=== PATIENT | female | born 1985 | race African-American/Black ===

== ENCOUNTER 2016-09-12 06:24 | Emergency (ER) | payer OTHER ==
[~2016-09-12] VITALS: Ht 154.9 cm; Wt 90.6 kg
[~2016-09-12 06:24] MED LIST: ALBU6.7H INH; CIPR-213 PO; D-ME118S13 PO; PRENATAL VITS
[2016-09-12 07:48] VITALS: BP 108/66
== END 2016-09-12 08:42 | disposition home or self-care (01) ==
LOC: ER 07:20
DX: T37.8X5A Adverse effect of other specified systemic anti-infectives and antiparasitics, initial encounter (principal); N76.0 Acute vaginitis; Z88.3 Allergy status to other anti-infective agents; Z91.041 Radiographic dye allergy status; Z98.890 Other specified postprocedural states; Y92.018 Other place in single-family (private) house as the place of occurrence of the external cause
CPT/HCPCS: 81025; 99283

== ENCOUNTER 2017-01-05 12:08 | Emergency (ER) | payer OTHER ==
[~2017-01-05] VITALS: Ht 162.6 cm; Wt 99.8 kg
[2017-01-05 12:59] LABS: BASOPHILS % 0.4 % (0.0-2.0); EOSINOPHILS % 1.5 % (0.0-5.0); HEMATOCRIT. 43.4 % (36.0-48.0); HEMOGLOBIN. 14.4 g/dL (12.0-16.0); LYMPHOCYTES % 29.9 % (20.0-50.0); MEAN CORPUSCULAR HEMOGLOBIN 29.3 pg (28.0-32.0); MEAN CORPUSCULAR VOLUME 88.5 fL (81.0-99.0); MEAN PLATELET VOLUME 8.9 fl (7.4-10.4); MONOCYTES % 6.4 % (2.0-8.0); NEUTROPHILS % 61.8 % (40.0-76.0); PLATELET 235 x1000/uL (130-400); RED BLOOD CELL COUNT 4.91 mill/uL (4.2-5.4); RED CELL DISTRIBUTION WIDTH 13.1 % (11.6-14.6)
[2017-01-05 13:16] LABS: CHLORIDE 106 mEq/L (98-107)
[2017-01-05 13:24] LABS: CARBON DIOXIDE 26 mEq/L (21-32)
[2017-01-05 14:50] VITALS: BP 113/53
== END 2017-01-05 14:56 | disposition home or self-care (01) ==
LOC: ER 12:51
DX: R07.9 Chest pain, unspecified (principal); R20.0 Anesthesia of skin; F41.9 Anxiety disorder, unspecified; Z87.891 Personal history of nicotine dependence; Z88.1 Allergy status to other antibiotic agents; Z88.8 Allergy status to other drugs, medicaments and biological substances; Z98.890 Other specified postprocedural states
CPT/HCPCS: 36415; 71010; 80053; 85025; 93005; 99285; Z7610

== ENCOUNTER 2017-04-05 17:39 | Emergency (ER) | payer OTHER ==
[~2017-04-05] VITALS: Ht 162.6 cm; Wt 100.0 kg
[2017-04-05] MEDS ORDERED: IBUPROFEN 600MG TABLET PO ONE (20:30)
[2017-04-05] MEDS ORDERED: ACETAMINOPHEN 500MG TABLET PO ONE ×2 (20:45→21:00)
[2017-04-05 22:40] VITALS: BP 136/87
== END 2017-04-05 22:46 | disposition home or self-care (01) ==
LOC: ER 18:19
DX: S80.02XA Contusion of left knee, initial encounter (principal); Y93.89 Activity, other specified; W01.0XXA Fall on same level from slipping, tripping and stumbling without subsequent striking against object, initial encounter; Y92.524 Gas station as the place of occurrence of the external cause; R03.0 Elevated blood-pressure reading, without diagnosis of hypertension; Z88.8 Allergy status to other drugs, medicaments and biological substances; Z88.1 Allergy status to other antibiotic agents; Z91.041 Radiographic dye allergy status
CPT/HCPCS: 73562; 99284; L1830